=== PATIENT | female | born 1985 | race Caucasian/White ===

== ENCOUNTER 2020-08-27 15:47 | Inpatient (IN) | payer BC ==
[~2020-08-27] VITALS: Ht 167.6 cm; Wt 98.7 kg
[2020-08-27 17:57] LABS: ALBUMIN 3.9 gm/dL (3.5-5.0); BILIRUBIN,TOTAL 0.9 mg/dL (0.0-1.0); CREATININE, serum 0.56 (0.52-1.25); POTASSIUM 3.6 mmol/L (3.4-5.0); TOTAL PROTEIN 8.3 gm/dL (6.4-8.2)
[2020-08-27 17:59] LABS: BASO % 0.1 % (0.0-2.0); EOS # 0.1 (0.0-0.7); EOS % 0.7 % (0-4.0); GRAN # 13.2 (1.4-6.5); GRAN % 84.2 % (42.2-75.2); HEMOGLOBIN 12.2 g/dl (12.5-16.0); LYMPH # 1.2 (1.2-3.4); LYMPH % 7.4 % (20.0-51.0); MEAN CELL VOLUME 88 fl (80.0-100.0); MEAN CORPUSCULAR HEMOGLOBIN 29 pg (27.0-31.0); MEAN CORPUSCULAR HGB CONC 33 g/dl (33.0-37.0); MEAN PLATELET VOLUME 8.2 fl (7.4-10.4); MONO # 1.1 (0.1-0.6); PLATELET COUNT 617 K/mm3 (130-400); REDCELL DISTRIBUTION WIDTH-CV 12.1 % (11.5-14.5)
[2020-08-27 22:51] LABS: TROPONIN-I < 0.012 ng/mL (0.000-0.035)
[2020-08-27 23:10] LABS: INR 1.5 (0.8-3.0)
[2020-08-27 23:12] LABS: PARTIAL THROMBOPLASTIN TIME 30.5 SECONDS (26.0-37.0)
[2020-08-27 23:39] LABS: C-REACTIVE PROTEIN 34.8 mg/dL (0.0-0.9)
[2020-08-28 04:09] LABS: ARTERIAL BLD GAS O2 SATURATION 94.6 % (92-100); ARTERIAL BLD GAS TCO2 CT 27.8; ARTERIAL BLOOD GAS BASE EXCESS 1.9 (-2-2); ARTERIAL BLOOD GAS HCO3 26.5 meq/L (22-26); ARTERIAL BLOOD GAS PCO2 41.5 mmHg (35-45); ARTERIAL BLOOD GAS PO2 74.5 mmHg (80-100); ARTERIAL BLOOD GAS pH 7.42 (7.35-7.45)
[2020-08-28 08:18] LABS: HEMOGLOBIN 11.6 g/dl (12.5-16.0); MEAN CELL VOLUME 89 fl (80.0-100.0); MEAN CORPUSCULAR HEMOGLOBIN 29 pg (27.0-31.0); MEAN CORPUSCULAR HGB CONC 33 g/dl (33.0-37.0); MEAN PLATELET VOLUME 8.2 fl (7.4-10.4); RED BLOOD COUNT 3.99 M/mm3 (4.10-5.30); REDCELL DISTRIBUTION WIDTH-CV 12.2 % (11.5-14.5)
[2020-08-28 08:21] LABS: HEMATOCRIT 35.5 % (37.0-47.0); PLATELET COUNT 501 K/mm3 (130-400)
[2020-08-28 08:38] LABS: LYMPHOCYTE 3 % (20.0-51.0); NEUTROPHILS 93 % (42.0-75.2); PLATELET ESTIMATE INCREASED (NORMAL)
[2020-08-28 08:39] LABS: HYPOCHROMIA 1+
[2020-08-28 08:49] VITALS: BP 89/42; PULSE 112; TEMP 99
[2020-08-28 11:21] VITALS: BP 142/69; PULSE 85; TEMP 98
[2020-08-28 12:54] VITALS: BP 97/79; PULSE 113; TEMP 98.5
--- NOTE | 2020-08-28 13:39 | NUR ---
Sw met with the pt who stated her perference to return home once medically stable. The pt lives at home with her boyfriend and his two children. The pt NK is Soledad Schulte, sister (ph# [phone]).The pt is independent on all ADLs and uses no DME. The pt pcp is Renetta Majano and she uses [facility] in [place] to get her medications. She has no trouble obtaining them. The pt does not have a DPAO-[facility] and is not interested in one at this time. No other needs stated at this time. Sw to await further recommendations and follow up as needed. D/c: Home
[2020-08-28 15:54] VITALS: BP 97/58; PULSE 110; TEMP 98.8
--- NOTE | 2020-08-28 18:41 | NUR ---
Pt arrived to room 301, rested in bed without issues. Some SOB on exertion, coughing up blood tinged sputum. Sputum cup provided for sample. She is currently on 3L O2 via NC. Pt reports pain to chest/back, PRN pain medications administered. POC discussed with patient. IVF into LAC, call light within reach.
[2020-08-28 19:33] VITALS: BP 101/43; PULSE 110; TEMP 99
[2020-08-28 23:52] VITALS: BP 111/65; PULSE 87; TEMP 98.8
[2020-08-29 03:58] VITALS: BP 100/68; PULSE 105; TEMP 98.7
--- NOTE | 2020-08-29 06:23 | NUR ---
PATIENT ASSESSMENT DONE. ALERT AND ORIENTED X4. NORCO 1 TAB GIVEN X2 FOR BACK PAIN AND ROBITUSSIN GIVEN X 2 FOR PRODUCTIVE COUGH. PATIENT ON 3L NC, LUNG SOUNDS DIMINISHED. VSS, AFEBRILE. PATIENT REPORT THAT CALL LIGHT NOT WORKING. 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 WILL CONTINUE TO MONITOR.
[2020-08-29 08:31] VITALS: BP 118/72; PULSE 96; TEMP 98.4
--- NOTE | 2020-08-29 09:28 | NUR ---
SHIFT ASSESSMENT COMPLETED. PT RESTING COMFORTABLY IN BED EATING BREAKFAST. PT RATES PAIN AT A 1/10 R/T HER BACK ACHING. PT IV HAS NS RUNNING AT 75ML/HR. O2 IS AT 1L NASAL CANNULA. PT DENIES ANY SOB OR LABORED BREATHING. LUNG SOUNDS ARE DIMINISHED UPON AUSCULTATION. HEART RATE IS BRADYCARDIC AT ABOUT 100BPM. BOWEL SOUNDS ARE PRESENT IS ALL FOUR QUADRANTS. NO EDEMA OR SKIN PROBLEMS NOTED. PT HAS A PRODUCTIVE COUGH AND REPORTS IT HAS A PINK TINGE TO THE SPUTUM. WILL CONTINUE TO MONITOR.
[2020-08-29] MEDS ORDERED: DECADRON6 MG PO (10:14)
[2020-08-29] MEDS ORDERED: MONODOX100 PO (10:15)
[2020-08-29] MEDS ORDERED: OMNICEF 300MG300 MG PO (10:16)
[2020-08-29] MEDS ORDERED: ELIQUIS 5MG PO (10:19)
--- NOTE | 2020-08-29 12:00 | NUR ---
DISCHARGE INSTRUCTIONS GIVEN, ALL QUESTIONS ANSWERED. CATHETER WAS REMOVED, TIP WAS INTACT.
== END 2020-08-29 12:40 | disposition home or self-care (01) | DRG 177 ==
LOC: COL.ER 15:47 → MEDICAL 21:56
PROVIDERS: Nurse Practitioner Family; Nurse Practitioner Primary Care
DX: U07.1 COVID-19 (principal); J96.01 Acute respiratory failure with hypoxia; I26.99 Other pulmonary embolism without acute cor pulmonale; E66.9 Obesity, unspecified; Z68.34 Body mass index [BMI] 34.0-34.9, adult; R00.0 Tachycardia, unspecified
CPT/HCPCS: 99222-AI; 99223-AI; 99232-AI; J0696; J1100; J1170; J1650; J2270; J7030; Q9967